=== PATIENT | male | born 1950 | race Caucasian/White ===

== ENCOUNTER 2016-10-18 17:42 | Inpatient (IN) | payer MEDICARE, OTHER ==
[~2016-10-18] VITALS: Ht 172.7 cm; Wt 127.9 kg
[2016-10-18] MEDS ORDERED: cloNIDine HCL 0.1 MG TAB PO ONE (18:15)
[2016-10-18 18:25] LABS: Basophils # (auto) 0.2 uL; Basophils % (auto) 1.4 % (0.0-2.0); CONDITION Y; DEFINITIVE SEE PRINTOUT; Eosinophils # (auto) 0.2 uL; Eosinophils % (auto) 1.1 % (0.0-7.0); Hematocrit 45.8 % (41.0-53.0); Hemoglobin 14.9 g/dL (13.5-17.5); Lymphocytes # (auto) 3.2 uL; Lymphocytes % (auto) 23.4 % (10.0-50.0); Mean Corpuscular Hemoglobin 25.9 pg (28.0-32.0); Mean Corpuscular Hgb Conc. 32.6 g/dL (32.0-36.0); Mean Corpuscular Volume 79.5 fL (80.0-100.0); Mean Platelet Volume 9.8 fL (7.4-10.4); Monocytes # (auto) 0.9 uL; Monocytes % (auto) 6.7 % (0.0-12.0); Neutrophils # (auto) 9.2 uL; Neutrophils % (auto) 67.4 % (37.0-80.0); Platelet Count (auto) 333 10^3/uL (140-450); Red Cell Distribution Width 14.9 % (11.6-16.0); White Blood Cell 13.6 10^3/uL (4.4-10.8)
[2016-10-18 18:40] LABS: INR 0.94 (0.9-1.15); Partial Thromboplastin Time 30.2 sec (22.64-33.71); Prothrombin Time 10.2 sec (9.37-12.3)
[2016-10-18 18:51] LABS: Albumin 3.5 g/dL (3.4-5.0); Alkaline Phosphatase 80 U/L (45-117); Anion Gap 12 (5-15); Aspartate Aminotransferase 11 U/L (15-37); Bilirubin, Total 0.2 mg/dL (0.2-1.0); Blood Urea Nitrogen 24 mg/dL (7-18); Carbon Dioxide 26 mmol/L (21-32); Chloride 97 mmol/L (98-107); GFR African American 96 mL/min; GFR Non-African American 79 mL/min; Glucose 96 mg/dL (74-106); Sodium 135 mmol/L (136-145); Total Protein 8.5 g/dL (6.4-8.2)
[2016-10-18] MEDS ORDERED: FUROSEMIDE 40 MG/4 ML VIAL IV ONE (19:15)
[2016-10-18 20:19] LABS: Temperature: 23.1 C (20.0-25.0)
[2016-10-18 20:21] LABS: B-Type Natriuretic Peptide < 5.0 pg/mL (0-100)
[2016-10-18] MEDS ORDERED: LACTULOSE 20Gm/30ML SOLN PO PRN (21:15)
[2016-10-18] MEDS ORDERED: MORPHINE SULF INJ 2 MG/ML SYRINGE 1ML IV PRN (21:15)
[2016-10-18] MEDS: SODIUM CHLORIDE 0.9% 1,000 ML IV SCH (21:15)
[2016-10-18] MEDS ORDERED: NITROGLYCERIN 0.4 MG SL TAB SL PRN (21:15)
[2016-10-18] MEDS ORDERED: cloNIDine HCL 0.1 MG TAB PO PRN (21:30)
[2016-10-18] MEDS ORDERED: cefTRIAXone 1GM/50ML D5W 50 ML IV ONE (21:30)
[2016-10-18 23:59] VITALS: BP 143/94
[2016-10-19] VITALS (7 sets, daily range): BP systolic 128–156; BP diastolic 72–99
[2016-10-19] MEDS ORDERED: ASPI81TA27 PO (03:05)
[2016-10-19] MEDS ORDERED: POTA10TA51 PO (03:05)
[2016-10-19 06:18] LABS: Basophils # (auto) 0 uL; CONDITION Y; DEFINITIVE SEE PRINTOUT; Eosinophils # (auto) 0.1 uL; Eosinophils % (auto) 0.8 % (0.0-7.0); Hematocrit 45.1 % (41.0-53.0); Hemoglobin 14.5 g/dL (13.5-17.5); Lymphocytes # (auto) 2.8 uL; Lymphocytes % (auto) 22.9 % (10.0-50.0); Mean Corpuscular Hemoglobin 25.9 pg (28.0-32.0); Mean Corpuscular Hgb Conc. 32.1 g/dL (32.0-36.0); Mean Corpuscular Volume 80.6 fL (80.0-100.0); Mean Platelet Volume 10.6 fL (7.4-10.4); Monocytes # (auto) 0.8 uL; Monocytes % (auto) 6.8 % (0.0-12.0); Neutrophils # (auto) 8.5 uL; Neutrophils % (auto) 69.5 % (37.0-80.0); Platelet Count (auto) 296 10^3/uL (140-450); Red Cell Distribution Width 15.1 % (11.6-16.0); White Blood Cell 12.3 10^3/uL (4.4-10.8)
[2016-10-19 06:37] LABS: Albumin 3.1 g/dL (3.4-5.0); Bilirubin, Total 0.5 mg/dL (0.2-1.0); Calcium 9.3 mg/dL (8.5-10.1); Potassium 3.6 mmol/L (3.5-5.1); Total Protein 7.9 g/dL (6.4-8.2)
[2016-10-19] MEDS ORDERED: cefTRIAXone 1GM/50ML D5W 50 ML IV SCH (09:00)
[2016-10-19] MEDS: SODIUM CHLORIDE 0.9% 1,000 ML IV SCH (09:45)
[2016-10-19] MEDS ORDERED: ENALAPRIL MALEATE 10 MG TAB PO SCH (10:00)
[2016-10-19] MEDS ORDERED: METOPROLOL SUCCINATE XL 50 MG TAB PO SCH (10:00)
[2016-10-19] MEDS ORDERED: ASPirin 81 mg TAB PO SCH (10:00)
[2016-10-19] MEDS ORDERED: ENOXAPARIN SOD 40 MG/0.4 ML SYRINGE SC SCH (10:00)
[2016-10-19] MEDS ORDERED: ALBUTEROL SULF 2.5 MG/0.5ML(0.5%) NEB SOLN NEB ONE (11:45)
[2016-10-19] MEDS ORDERED: LEVO500T21 PO (11:48)
[2016-10-19] MEDS ORDERED: ALBUAER3 IN (11:48)
[2016-10-19] MEDS ORDERED: METO50TA7 PO (11:48)
[2016-10-19] MEDS ORDERED: IOHEXOL 350 MG/ML 100ML IJ ONE (14:31)
[2016-10-19] MEDS ORDERED: ALBUTEROL SULF 2.5 MG/0.5ML(0.5%) NEB SOLN NEB PRN (18:00)
== END 2016-10-19 19:00 | disposition home health service (06) | DRG 191 ==
LOC: ER 17:51 → TELE 17:52 → TELE-WESTW 23:44
PROVIDERS: ADMIT Family Medicine; ATTEND Internal Medicine
DX: J44.1 Chronic obstructive pulmonary disease with (acute) exacerbation (principal); N13.30 Unspecified hydronephrosis; K76.0 Fatty (change of) liver, not elsewhere classified; Z68.41 Body mass index [BMI] 40.0-44.9, adult; I10 Essential (primary) hypertension; E66.01 Morbid (severe) obesity due to excess calories; K59.00 Constipation, unspecified; E04.1 Nontoxic single thyroid nodule; I25.10 Atherosclerotic heart disease of native coronary artery without angina pectoris; Z80.7 Family history of other malignant neoplasms of lymphoid, hematopoietic and related tissues; Z82.3 Family history of stroke; Z82.49 Family history of ischemic heart disease and other diseases of the circulatory system; Z90.89 Acquired absence of other organs; Z89.022 Acquired absence of left finger(s); Z79.899 Other long term (current) drug therapy; Z71.89 Other specified counseling
CPT/HCPCS: 36415; 71010; 71250; 71275; 76775; 80053; 80061; 83880; 84443; 84484; 85025; 85379; 85610; 85730; 93005; 93306; 94640; 96374; 96375; J0696